=== PATIENT | male | born 1955 | race Caucasian/White ===

== ENCOUNTER 2016-08-16 19:47 | Emergency (ER) | payer OTHER ==
[~2016-08-16] VITALS: Ht 165.1 cm; Wt 85.5 kg
[2016-08-16 19:50] VITALS: Ht 165.1 cm; Wt 85.5 kg
[2016-08-16 20:19] LABS: ADD SCAN DIFF NO
[2016-08-16 20:28] LABS: BASOPHIL # 0.1 10^3/ul (0.0-0.1); BASOPHILS % 0.7 % (0.0-2.0); EOSINOPHILS # 0.2 10^3/ul (0.0-0.5); EOSINOPHILS % 1.5 % (0.0-7.0); HEMATOCRIT 42.5 % (42.0-52.0); HEMOGLOBIN 14.1 g/dl (14.0-18.0); LYMPHOCYTES # 4.1 10^3/ul (0.8-2.9); LYMPHOCYTES % 37.5 % (15.0-51.0); MEAN CORPUSCULAR HEMOGLOBIN 28.8 pg (29.0-33.0); MEAN CORPUSCULAR HGB CONC 33.2 g/dl (32.0-37.0); MEAN CORPUSCULAR VOLUME 86.7 fl (82.0-101.0); MEAN PLATELET VOLUME 12.2 fl (7.4-10.4); MONOCYTE # 0.8 10^3/ul (0.3-0.9); MONOCYTES % 7.6 % (0.0-11.0); NEUTROPHIL # 5.7 10^3/ul (1.6-7.5); NEUTROPHILS % 52.5 % (39.0-77.0); PLATELET COUNT 163 10^3/UL (140-415); RED CELL DISTRIBUTION WIDTH 12.9 % (11.5-14.5); WHITE BLOOD COUNT 10.9 10^3/ul (4.8-10.8)
[2016-08-16] MEDS ORDERED: hydrALAzine 20 MG INJ IV ONE (20:30)
[2016-08-16 20:40] LABS: ALBUMIN 3.9 g/dl (3.3-4.9); CHLORIDE 103 mmol/L (97-110)
[2016-08-16 20:41] LABS: POTASSIUM 3.3 mmol/L (3.5-5.1); SODIUM 141 mmol/L (135-144)
[2016-08-16 20:43] LABS: ALBUMIN/GLOBULIN RATIO 1.11; ALKALINE PHOSPHATASE 91 IU/L (42-121); ANION GAP 11 (8-16); ASPARTATE AMINO TRANSFERASE 20 IU/L (15-46); BILIRUBIN,INDIRECT 0.7 mg/dl (0-1.1); BILIRUBIN,TOTAL 0.7 mg/dl (0.2-1.3); BLOOD UREA NITROGEN 18 mg/dl (7-20); CARBON DIOXIDE 30 mmol/L (21-31); CREATININE 0.74 mg/dl (0.61-1.24); TOTAL PROTEIN 7.4 g/dl (6.1-8.1)
[2016-08-16 20:44] LABS: ALANINE AMINOTRANSFERASE 24 IU/L (13-69); CALCIUM 8.6 mg/dl (8.4-10.2); GLUCOSE 121 mg/dl (70-220)
[2016-08-16 20:45] LABS: ADD UMIC YES; URINE BILIRUBIN (Dip) NEGATIVE (NEGATIVE); URINE BLOOD (Dip) TRACE (NEGATIVE); URINE COLOR LT. YELLOW (YELLOW); URINE GLUCOSE (Dip) NEGATIVE (NEGATIVE); URINE KETONES (Dip) NEGATIVE (NEGATIVE); URINE LEUKOCYTE ESTERASE (Dip) NEGATIVE (NEGATIVE); URINE NITRITE (Dip) NEGATIVE (NEGATIVE); URINE TOTAL PROTEIN (Dip) NEGATIVE (NEGATIVE); URINE UROBILINOGEN (Dip) 0.2 E.U./dL (0.1-1.0)
[2016-08-16 20:59] LABS: TROPONIN-I < 0.012 ng/ml (0.00-0.12)
[2016-08-16 21:28] LABS: URINE RBCS 0-2 /HPF (0)
--- NOTE | 2016-08-16 22:30 | RADRPT ---
PROCEDURE: CT Abdomen and Pelvis without contrast. CLINICAL INDICATION: Abdominal and pelvic pain. Left upper quadrant pain. TECHNIQUE: CT scan of the abdomen and pelvis without contrast was performed. Coronal and sagittal reformatted images were obtained from the axial source images. Images were reviewed on a high-resolu [employer] PACS workstation. Total exam DLP is 968.42 mGy-cm. CTDIvol is 17.10 mGy. One or more of the f ollowing dose reduction techniques were used: Automated exposure control, adjustment of the mA and/o r kV according to patient size, use of iterative reconstruction technique. COMPARISON: None. FINDINGS: The lung bases are normal. There is no pleural effusion. The liver is normal in size and attenuation. There is no focal hepatic lesion. The gallbladder and bile ducts are normal. The spleen is normal in size. There is no focal splenic lesion. Both adrenals are normal with no enlargement or mass. The pancreas is unremarkable with no mass or evidence of pancreatitis. There is no renal mass or hydronephrosis. There is no renal calculus or ureteral calculus. The abdominal aorta is not dilated. There is calcification in the aorta consistent with atherosclero sis. There is no retroperitoneal lymphadenopathy or mass. There is no pelvic lymphadenopathy or mass. The bladder and distal ureters are normal. The appendix is well seen and appears normal. The bowel and mesentery are normal. There is no free fluid or free gas. There are degenerative changes of the spine. There is no fracture or lytic lesion. IMPRESSION: 1. Atherosclerosis. 2. No urinary tract calculus or hydronephrosis. 3. Normal appendix. 4. Degenerative changes of the spine. 5. Otherwise unremarkable noncontrast CT scan of the abdomen and pelvis. RPTAT: QQ .Eric Alvarez MD, MD Date Time Electronically viewed and signed by .Eric Alvarez MD, MD on 08/16/2016 22:30 .R/
--- NOTE | 2016-08-16 22:35 | ERD ---
ER Documentation Chief Complaint Date/Time DATE: 08/16/16 TIME: 22:33 Chief Complaint Pt sent to ED for uncontrolled HTN HPI This is a 61-year-old male presents to the emergency room for evaluation of uncontrolled hypertension. This patient was seen by his primary care physician , and was sent to the emergency room for further evaluation. This patient was given a prescription for Cozaar 100 mg. When I evaluated this patient he had a blood pressure greater than 200 systolic. The patient stated he had mild abdominal pain which she localized to the left lower quadrant. Patient denies any headache, blurred vision, chest pain or shortness of breath ROS All systems reviewed and are negative except as per history of present illness. Medications Home Meds No Active Prescriptions or Reported Meds Allergies Allergies: Coded Allergies: No Known Allergy (Unverified , 08/16/16) PMhx/Soc Medical and Surgical Hx: pt denies Surgical Hx Hx Cardiac Disorders: Yes (htn- not perscribed meds in past) Hx Alcohol Use: Yes (1x/wk) Hx Substance Use: No Hx Tobacco Use: No Smoking Status: Never smoker Physical Exam Vitals Vital Signs Date Time Temp Pulse Resp B/P Pulse Ox O2 Delivery O2 Flow Rate FiO2 08/16/16 19:50 98.6 68 18 226/106 96 Physical Exam INITIAL VITAL SIGNS: Reviewed by me GENERAL: The patient is well developed and appropriate for usual state of health in no apparent distress HEENT: Pupils equal, round, and reactive to light. EOMI. There is no scleral icterus. NECK: C-spine is soft and supple, there is no meningismus. There is no cervical lymphadenopathy. LUNGS: Clear to auscultation bilaterally. There are no rales, wheezes or rhonchi. HEART: Regular rate and rhythm, no murmurs, clicks, rubs or gallops. ABDOMEN: Left lower quadrant tenderness to palpation, otherwise soft, non-tender , non-distended. There are bowel sounds in all four quadrants. No rebound or guarding. EXTREMITIES: There is no peripheral cyanosis or edema. No focal swelling or erythema. NEUROLOGICAL: The patient moves all four extremities with 5/5 strength. Cranial nerves II - XII are intact. Normal gait. Alert and oriented SKIN: There is no apparent rash or petechiae. HEME/LYMPHATIC: There is no evidence of excessive bruising or lymphedema. PSYCHIATRIC: The patient does not appear anxious or depressed. Result Diagram: 08/16/16201108/16/162011 Results 24 hrs Laboratory Tests Test 08/16/16 20:12 08/16/16 20:18 White Blood Count 10.910^3/ul Red Blood Count 4.9010^6/ul Hemoglobin 14.1g/dl Hematocrit 42.5% Mean Corpuscular Volume 86.7fl Mean Corpuscular Hemoglobin 28.8pg Mean Corpuscular Hemoglobin Concent 33.2g/dl Red Cell Distribution Width 12.9% Platelet Count 67257^3/UL Mean Platelet Volume 12.2fl Neutrophils % 52.5% Lymphocytes % 37.5% Monocytes % 7.6% Eosinophils % 1.5% Basophils % 0.7% Nucleated Red Blood Cells % 0.0/100WBC Neutrophils # 5.710^3/ul Lymphocytes # 4.110^3/ul Monocytes # 0.810^3/ul Eosinophils # 0.210^3/ul Basophils # 0.110^3/ul Nucleated Red Blood Cells # 0.010^3/ul Sodium Level 141mmol/L Potassium Level 3.3mmol/L Chloride Level 103mmol/L Carbon Dioxide Level 30mmol/L Anion Gap 11 Blood Urea Nitrogen 18mg/dl Creatinine 0.74mg/dl Glucose Level 121mg/dl Calcium Level 8.6mg/dl Total Bilirubin 0.7mg/dl Direct Bilirubin 0.00mg/dl Indirect Bilirubin 0.7mg/dl Aspartate Amino Transf (AST/SGOT) 20IU/L Alanine Aminotransferase (ALT/SGPT) 24IU/L Alkaline Phosphatase 91IU/L Troponin I < 0.012ng/ml Total Protein 7.4g/dl Albumin 3.9g/dl Globulin 3.50g/dl Albumin/Globulin Ratio 1.11 Lipase 55U/L Urine Color LT. YELLOW Urine Clarity CLEAR Urine pH 6.5 Urine Specific [place] 1.010 Urine Ketones NEGATIVE Urine Nitrite NEGATIVE Urine Bilirubin NEGATIVE Urine Urobilinogen 0.2 E.U./dL Urine Leukocyte Esterase NEGATIVE Urine Microscopic RBC 0-2/HPF Urine Microscopic WBC NONE SEEN/HPF Urine Hemoglobin TRACE Urine Glucose NEGATIVE% Urine Total Protein NEGATIVE Current Medications Medications (Trade) Dose Ordered Sig/Katie Route PRN Reason Start Time Stop Time Status Last Admin Dose Admin Hydralazine HCl (Apresoline) 10 mg ONCE ONCE IV 08/16/16 20:30 08/16/16 20:31 DC 08/16/16 20:27 Procedures/MDM CT abdomen pelvis without: 1. Atherosclerosis. 2. No urinary tract calculus or hydronephrosis. 3. Normal appendix. 4. Degenerative changes of the spine. 5. Otherwise unremarkable noncontrast CT scan of the abdomen and pelvis. EKG: Rate/Rhythm: [Normal Sinus Rhythm] QRS, ST, T-waves: [No changes consistent w/ acute ischemia] Impression: [No evidence of ischemia or arrhythmia] Chest X-ray 1V Interpreted by me: Soft Tissue: No acute abnormalities Bones: No acute abnormalities Mediastinum/Cardiac Silhouette/Lungs: [No acute abnormalities] This 61-year-old male presents to the emergency room for evaluation of uncontrolled hypertension. When I evaluated this patient he had a systolic blood pressure greater than 220. This patient was given hydralazine, labetalol. His repeat blood pressure is 171/63. CT of the abdomen and pelvis was obtained because he did have mild tenderness there. The patient has no acute findings on CT. His EKG does not show any acute ischemia. Troponin is normal, chest x-ray is clear. This patient will be discharged home with a prescription for hydrochlorothiazide. I advised him to moss picker his prescription of Cozaar at the pharmacy Departure Diagnosis: Primary Impression: Uncontrolled hypertension Condition: MELINDA Song DO Aug 16, 2016 22:35
[2016-08-16] MEDS ORDERED: HYD25 PO (22:36)
[2016-08-16 23:08] VITALS: BP 154/71; PULSE 72; RESP 18
== END 2016-08-16 23:12 | disposition home or self-care (01) ==
LOC: E/R 19:47
DX: I10 Essential (primary) hypertension (principal)
CPT/HCPCS: 36415; 74176; 80053; 81001; 83690; 84484; 85025; 96374; J0360; Z7502; 81003; 93005

== ENCOUNTER 2016-08-27 15:17 | Outpatient (CLI) | payer OTHER ==
[~2016-08-27] VITALS: Ht 160 cm; Wt 80.0 kg
[~2016-08-27 15:17] MED LIST: HYD25 PO
[2016-08-27 15:33] VITALS: BP 169/80; PULSE 64; RESP 16; Ht 160 cm; Wt 80.0 kg
[2016-08-27] MEDS ORDERED: LISI40TA9 PO (15:58)
[2016-08-27] MEDS ORDERED: LABE100T3 PO (15:58)
--- NOTE | 2016-08-27 16:27 | PN ---
Date/Time of Note Date/Time of Note DATE: 08/27/16 TIME: 16:24 Outpatient Progress Note Chief Complaint Hypertension/ HPI Hypertension/chronic in nature, going on for years, not controlled, associated with slight headache, no dizziness, or syncope, not improved with medication, patient's blood pressure still elevated, No nausea or vomiting, no local focal weakness, no ankle edema, patient on multiple blood pressure medication, Review of Systems Const: No Fever, no chills, no Wt. loss, no Fatigue, normal appetite, no diaphoresis. Eyes: No pain, no discharge, no redness, no visual change, no foreign body. ENT: No pain, no bleeding, no congestion, no sore throat, no dysphagia, no discharge or rhinitis. Lymph: No adenopathy, no tender nodes, no lymphedema. Resp: No SOB, no cough, no sputum, no wheezing, no chest pain. CV: No chest pain, no palpitaions, no GUERRERO, no PND, no edema. GI: Normal appetite, no pain, no nausea, no vomiting, no diarrhea, no blood, no constipation. : No frequency, no urgency, no dysuria, no hematuria, no flank pain, no discharge, no bleeding. Musc: No bone/joint pain, no back pain, no neck pain, no knee pain, no restricted ROM. Skin: No rash, no skin lesions, no erythema, no laceration, no bruising, no pruritus. Neuro: Slight IVORY, and occasional dizziness, no syncope, no seizure, no focal- weakness. Endo: No polyuria, no polydypsia, no dry-skin, no temp-intolerance. Psych: No hallucinations, no depression, no anxiety, no suicidal ideation. Ext: No edema, no pain, no ulcer, no weakness. Physical Exam Vital Signs Date Time Temp Pulse Resp B/P Pulse Ox O2 Delivery O2 Flow Rate FiO2 08/27/16 15:33 98.1 64 16 169/80 93 Room Air General Appearance: A [61 year-old GD male who appears well-developed, well- nourished, in no acute distress. HEENT: Head normocephalic, atraumatic. Pupils equal, round, reactive to light and accommodate. Sclerae are no jaundice. Nasal turbinates pink without erythema or nasal discharge. Mucous membranes pink and moist without lesions. Oropharynx clear without any exudate or discharge. NECK: Supple. Trachea midline, No thyromegaly, No cervical lymphadenopathy, No mass, No carotid bruits, No JVD, Carotid pulses 2+ bilaterally. PULMONARY: Clear to auscultaion bilaterally, No retractions, Chest expansion symmetric bilaterally, no rales, no ronchi, no dulness on percussion. CARDIAC: Normal SI and S2, Regular rate and rythm, no murmur, gallop, or rub. GASTROINTESTINAL: Abdomen is soft, non-tender, Non Rigid, No distention, Positive bowel sounds x4 quadrants, Liver normal. SKIN: Warm, dry, no rash, no bruise, no echmosis. EXTREMITIES: Bilateral lower extremities normal, no edema, no phlabitus, pulse palpable, no contracture. MUSCULOSKELETAL: Spine Normal, Non-tender, Normal range of motion, No swelling, no deformity, no clubbing, or cyanosis, the patient has no edema to bilateral lower extremities, dorsalis pedis pulses palpable bilaterally. NEUROLOGIC: The patient is awake, alert, oriented, responding to yes/no questions appropriately, moving all extremities, cranial nerve intact, normal strenght, normal power, normal coordination, normal gait. Allergies Coded Allergies: No Known Allergy (Unverified , 08/16/16) PMH Hypertension Social Hx No smoking no drinking, Family Hx Noncontributory Assessment/Plan Impression Hypertension poorly controlled/obesity Plan Patient already on 3 blood pressure medication, patient blood pressure still elevated, and patient has slight headache and occasional dizziness, improved significantly, Patient was getting hydralazine IV as needed in the hospital, patient already on labetalol, lisinopril, and hydrochlorothiazide, Will add hydralazine 25 mg 3 times daily, #100 Side effect explained to the patient, patient to follow with the primary care physician in 2 weeks, Medications Home Meds Active Scripts Hydrochlorothiazide* (Hydrochlorothiazide*) 25 Mg Tab, 25 MG PO DAILY, #30 TAB Prov:MELINDA BREWER DO 08/16/16 Reported Medications Lisinopril* (Lisinopril*) 40 Mg Tablet, 40 MG PO DAILY, #30 TAB 08/27/16 Labetalol Hcl* (Labetalol Hcl*) 100 Mg Tablet, 100 MG PO BID, TAB 08/27/16 ISADORA DIAZ MD Aug 27, 2016 16:27
== END 2016-08-27 16:57 | disposition home or self-care (01) ==
LOC: DCC 15:17
PROVIDERS: ATTEND Internal Medicine
DX: I10 Essential (primary) hypertension (principal); E66.9 Obesity, unspecified

== ENCOUNTER 2016-09-10 15:15 | Outpatient (CLI) | payer OTHER ==
[~2016-09-10] VITALS: Ht 160 cm; Wt 81.4 kg
[2016-09-10 15:12] VITALS: BP 236/108; PULSE 71; RESP 18; Ht 160 cm; Wt 81.4 kg
[~2016-09-10 15:15] MED LIST changes: +LABE100T3 PO; +LISI40TA9 PO
--- NOTE | 2016-09-10 15:25 | PN ---
Date/Time of Note Date/Time of Note DATE: 09/10/16 TIME: 15:22 Outpatient Progress Note Chief Complaint Hypertension uncontrolled/ HPI Hypertension/patient was recently hospitalized with hypertension, patient still has slight headache, no dizziness, increased with activity, reduce slightly without rest, patient blood pressure still hard any even with 3 medications, no nausea vomiting, no local focal weakness, no impaired vision, no blood in the urine, Review of Systems Const: [No Fever, no chills, no Wt. loss, no Fatigue, normal appetite, no diaphoresis.] Eyes: [No pain, no discharge, no redness, no visual change, no foreign body.] ENT: [No pain, no bleeding, no congestion, no sore throat, no dysphagia, no discharge or rhinitis.] Lymph: [No adenopathy, no tender nodes, no lymphedema.] Resp: [No SOB, no cough, no sputum, no wheezing, no chest pain.] CV: [No chest pain, no palpitaions, no GUERRERO, no PND, no edema.] GI: [Normal appetite, no pain, no nausea, no vomiting, no diarrhea, no blood, no constipation.] : [No frequency, no urgency, no dysuria, no hematuria, no flank pain, no discharge, no bleeding.] Musc: [No bone/joint pain, no back pain, no neck pain, no knee pain, no restricted ROM.] Skin: [No rash, no skin lesions, no erythema, no laceration, no bruising, no pruritus.] Neuro: [Slight IVORY, no dizziness, no syncope, no seizure, no focal-weakness.] Endo: [No polyuria, no polydypsia, no dry-skin, no temp-intolerance.] Psych: [No hallucinations, no depression, no anxiety, no suicidal ideation.] Ext: [No edema, no pain, no ulcer, no weakness.] Physical Exam General Appearance: A [61] year-old [male] [who appears well-developed, well- nourished, in no acute distress.] HEENT: [Head normocephalic, atraumatic. Pupils equal, round, reactive to light and accommodate. Sclerae are no jaundice. Nasal turbinates pink without erythema or nasal discharge. Mucous membranes pink and moist without lesions. Oropharynx clear without any exudate or discharge.] NECK: [Supple. Trachea midline, No thyromegaly, No cervical lymphadenopathy, No mass, No carotid bruits, No JVD, Carotid pulses 2+ bilaterally.] PULMONARY: [Clear to auscultaion bilaterally, No retractions, Chest expansion symmetric bilaterally, no rales, no ronchi, no dulness on percussion.] CARDIAC: [Normal SI and S2, Regular rate and rythm, no murmur, gallop, or rub.] GASTROINTESTINAL: [Abdomen is soft, non-tender, Non Rigid, No distention, Positive bowel sounds x4 quadrants, Liver normal.] SKIN: [Warm, dry, no rash, no bruise, no echmosis.] EXTREMITIES: [Bilateral lower extremities normal, no edema, no phlabitus, pulse palpable, no contracture.] MUSCULOSKELETAL: [Spine Normal, Non-tender, Normal range of motion, No swelling , no deformity, no clubbing, or cyanosis, the patient has no edema to bilateral lower extremities, dorsalis pedis pulses palpable bilaterally.] NEUROLOGIC: [The patient is awake, alert, oriented, responding to yes/no questions appropriately, moving all extremities, cranial nerve intact, normal strenght, normal power, normal coordination, normal gait.] Allergies Coded Allergies: No Known Allergy (Unverified , 08/16/16) PMH Hypertension Social Hx No change Family Hx No change Assessment/Plan Impression Hypertension poorly controlled Plan Patient education done about hypertension, patient already has been on multiple medication, and patient is taking regularly, Patient has a headache, and patient's a systolic blood pressure is 236, and diastolic 108, and patient already taking multiple medication, Recently patient was started on hydralazine 25 mg 3 times a day, I will increase hydralazine to 50 mg every 6 hours, Will check the blood pressure in couple of days, Patient advised if any headache more than usual or any other symptoms to's go to the emergency room, patient high risk for stroke, high risk for RI, patient explained, patient understands it and will follow through, any question to call us immediately, Medications Home Meds Active Scripts Hydrochlorothiazide* (Hydrochlorothiazide*) 25 Mg Tab, 25 MG PO DAILY, #30 TAB Prov:MELINDA BREWER DO 08/16/16 Reported Medications Lisinopril* (Lisinopril*) 40 Mg Tablet, 40 MG PO DAILY, #30 TAB 08/27/16 Labetalol Hcl* (Labetalol Hcl*) 100 Mg Tablet, 100 MG PO BID, TAB 08/27/16 ISADORA DIAZ MD Sep 10, 2016 15:25
== END 2016-09-10 16:26 | disposition home or self-care (01) ==
LOC: DCC 15:15
PROVIDERS: ATTEND Internal Medicine
DX: I10 Essential (primary) hypertension (principal)

== ENCOUNTER 2016-09-13 13:52 | Outpatient (CLI) | payer OTHER ==
[~2016-09-13] VITALS: Ht 160 cm; Wt 80.5 kg
[2016-09-13 13:58] VITALS: BP 213/98; PULSE 69; RESP 16; Ht 160 cm; Wt 80.5 kg
--- NOTE | 2016-09-13 14:35 | PN ---
Date/Time of Note Date/Time of Note DATE: 09/13/16 TIME: 14:29 Outpatient Progress Note Chief Complaint Hypertension poor control HPI Hypertension/patient has severe hypertension, patient was recently hospitalized , patient was seen last few days ago, patient was started on multiple medication , patient's blood pressure still significantly elevated, Patient has mild headache, no dizziness, no impaired vision, no local focal weakness, no nausea or vomiting, no history of any kidney problem, Review of Systems Const: No Fever, no chills, no Wt. loss, no Fatigue, normal appetite, no diaphoresis. Eyes: No pain, no discharge, no redness, no visual change, no foreign body. ENT: No pain, no bleeding, no congestion, no sore throat, no dysphagia, no discharge or rhinitis. Lymph: No adenopathy, no tender nodes, no lymphedema. Resp: No SOB, no cough, no sputum, no wheezing, no chest pain. CV: No chest pain, no palpitaions, no GUERRERO, no PND, no edema. GI: Normal appetite, no pain, no nausea, no vomiting, no diarrhea, no blood, no constipation. : No frequency, no urgency, no dysuria, no hematuria, no flank pain, no discharge, no bleeding. Musc: No bone/joint pain, no back pain, no neck pain, no knee pain, no restricted ROM. Skin: No rash, no skin lesions, no erythema, no laceration, no bruising, no pruritus. Neuro: Mild IVORY, no dizziness, no syncope, no seizure, no focal-weakness. Endo: No polyuria, no polydypsia, no dry-skin, no temp-intolerance. Psych: No hallucinations, no depression, no anxiety, no suicidal ideation. Ext: No edema, no pain, no ulcer, no weakness. Physical Exam Vital Signs Date Time Temp Pulse Resp B/P Pulse Ox O2 Delivery O2 Flow Rate FiO2 09/13/16 13:58 97.9 69 16 213/98 95 Room Air General Appearance: A 61 year-old male who appears well-developed, well- nourished, in no acute distress. HEENT: Head normocephalic, atraumatic. Pupils equal, round, reactive to light and accommodate. Sclerae are no jaundice. Nasal turbinates pink without erythema or nasal discharge. Mucous membranes pink and moist without lesions. Oropharynx clear without any exudate or discharge. NECK: Supple. Trachea midline, No thyromegaly, No cervical lymphadenopathy, No mass, No carotid bruits, No JVD, Carotid pulses 2+ bilaterally. PULMONARY: Clear to auscultaion bilaterally, No retractions, Chest expansion symmetric bilaterally, no rales, no ronchi, no dulness on percussion. CARDIAC: Normal SI and S2, Regular rate and rythm, no murmur, gallop, or rub. GASTROINTESTINAL: Abdomen is soft, non-tender, Non Rigid, No distention, Positive bowel sounds x4 quadrants, Liver normal. SKIN: Warm, dry, no rash, no bruise, no echmosis. EXTREMITIES: Bilateral lower extremities normal, no edema, no phlabitus, pulse palpable, no contracture. MUSCULOSKELETAL: Spine Normal, Non-tender, Normal range of motion, No swelling, no deformity, no clubbing, or cyanosis, the patient has no edema to bilateral lower extremities, dorsalis pedis pulses palpable bilaterally. NEUROLOGIC: The patient is awake, alert, oriented, responding to yes/no questions appropriately, moving all extremities, cranial nerve intact, normal strenght, normal power, normal coordination, normal gait. Allergies Coded Allergies: No Known Allergy (Unverified , 08/16/16) PMH No change Social Hx No change Family Hx No change Assessment/Plan Impression Hypertension poorly controlled Plan Patient blood pressure still significantly elevated, patient has mild headache, no other symptoms, Patient has appointment with primary care physician on Friday, patient will need some workup for uncontrolled hypertension, Patient blood pressure significantly elevated, will start Procardia XL 30 mg daily, in the morning, and if the blood pressure is 150 or above in the evening then will take a second tablet, patient has been advised, explaining in [place], I also wrote down in the booklet, Patient supposed to take the blood pressure reading to the primary care physician, so he can adjust the medication, if the pressure is quite significantly elevated or severe headache go to the emergency room, Medications Home Meds Active Scripts Hydrochlorothiazide* (Hydrochlorothiazide*) 25 Mg Tab, 25 MG PO DAILY, #30 TAB Prov:MELINDA BREWER DO 08/16/16 Reported Medications Lisinopril* (Lisinopril*) 40 Mg Tablet, 40 MG PO DAILY, #30 TAB 08/27/16 Labetalol Hcl* (Labetalol Hcl*) 100 Mg Tablet, 100 MG PO BID, TAB 08/27/16 ISADORA DIAZ MD Sep 13, 2016 14:35
== END 2016-09-13 16:11 | disposition home or self-care (01) ==
LOC: DCC 13:52
PROVIDERS: ATTEND Internal Medicine
DX: I10 Essential (primary) hypertension (principal)